=== PATIENT | male | born 1980 | race Caucasian/White ===

== ENCOUNTER 2020-01-09 08:28 | Emergency (ER) | payer OTHER ==
[2020-01-09] MEDS ORDERED: IBUPROFEN 600 MG TAB PO STA (08:54)
[2020-01-09] MEDS ORDERED: ACETAMINOPHEN TAB 500 MG TAB PO STA (08:54)
--- NOTE | 2020-01-09 09:00 | ED ---
URI HPI - General Chief Complaint: Upper Respiratory Infection Stated Complaint: Fever, Cough Time Seen by Provider: 01/09/20 08:49 Source: patient, RN notes reviewed Mode of arrival: ambulatory Limitations: no limitations - History of Present Illness Initial Comments: This a 39-year-old male presents emergency department tingling of fever cough congestion. Patient states symptoms started Thursday. He starts [id number] cough and cold medications with no relief. Patient denies any chest pain. Patient states she does have productive cough states is very achiness muscle joints. She does complain of a headache no recent Tylenol Motrin for his fever he did take some NyQuil last night. Patient's had a runny nose, sore throat. Patient denies any significant past history no sick contacts no recent traveling. - Related Data Home Medications Medication Instructions Recorded Confirmed D-Methorphan/PE/Acetaminophen 2 cap PO Q4H PRN 01/09/20 01/09/20 [Vicks Dayquil Liquicaps] guaiFENesin SYRUP 100MG/5ML 200 mg PO Q6H PRN 01/09/20 01/09/20 [Robitussin] Previous Rx's Medication Instructions Recorded Azithromycin [Zithromax Z-pack] 0 mg PO DIRECTED #1 pack 01/09/20 Allergies Allergy/AdvReac Type Severity Reaction Status Date / Time No Known Allergies Allergy Verified 01/09/20 09:06 Review of Systems ROS Statement: Those systems with pertinent positive or pertinent negative responses have been documented in the HPI. ROS Other: All systems not noted in ROS Statement are negative. Past Medical History Past Medical History: No Reported History History of Any Multi-Drug Resistant Organisms: None Reported Past Surgical History: No Surgical Hx Reported Past Psychological History: No Psychological Hx Reported Smoking Status: Never smoker Past Alcohol Use History: Occasional Past Drug Use History: None Reported General Exam Limitations: no limitations General appearance: alert, in no apparent distress Head exam: Present: atraumatic, normocephalic, normal inspection Eye exam: Present: normal appearance, PERRL, EOMI. Absent: scleral icterus, conjunctival injection, periorbital swelling ENT exam: Present: normal exam, normal oropharynx, mucous membranes moist, TM's normal bilaterally Neck exam: Present: normal inspection. Absent: tenderness, meningismus, lymphadenopathy Respiratory exam: Present: normal lung sounds bilaterally. Absent: respiratory distress, wheezes, rales, rhonchi, stridor Cardiovascular Exam: Present: normal rhythm, tachycardia, normal heart sounds. Absent: systolic murmur, diastolic murmur, rubs, gallop, clicks GI/Abdominal exam: Present: soft, normal bowel sounds. Absent: distended, tenderness, guarding, rebound, rigid Neurological exam: Present: alert, oriented X3, CN II-XII intact Skin exam: Present: warm, dry, intact, normal color. Absent: rash Course Vital Signs 01/09/20 01/09/20 08:31 08:40 Temperature 99.8 F H 102 F H Pulse Rate 102 H Respiratory 18 Rate Blood Pressure 130/86 O2 Sat by Pulse 97 Oximetry Medical Decision Making - Medical Decision Making Chest x-ray shows multifocal upper lobe pneumonia in the right. Patient was given Rocephin, be discharged on azithromycin. Patient advised that he self quarantined at this time. Patient really follow-up with. Patient is discharged with anorexia return parameters - Lab Data Lab Results 01/09/20 Range/Units 09:02 Influenza Type A RNA Not Detected (Not Detectd) Influenza Type B (PCR) Not Detected (Not Detectd) Disposition Clinical Impression: Pneumonia Disposition: HOME SELF-CARE Condition: Stable Instructions (If sedation given, give patient instructions): Pneumonia (ED) Additional Instructions: Please return to the Emergency Department if symptoms worsen or any other concerns. Prescriptions: Azithromycin [Zithromax Z-pack] 0 mg PO DIRECTED #1 pack Is patient prescribed a controlled substance at d/c from ED?: No Referrals: None,Stated [Primary Care Provider] - 1-2 days Time of Disposition: 09:51
--- NOTE | 2020-01-09 09:19 | XR ---
EXAMINATION TYPE: XR chest 2V DATE OF EXAM: 01/09/2020 COMPARISON: NONE HISTORY: Cough TECHNIQUE: Frontal and lateral views of the chest are obtained. FINDINGS: Multifocal right upper lobe patchy opacities are seen. Remainder the lungs are well aerate d. Cardiomediastinal silhouette is within normal limits. No acute osseous pathology. IMPRESSION: Multifocal right upper lobe opacities are most radiographically compatible with pneumoni a. Follow-up x-ray after treatment is recommended to ensure resolution.
[2020-01-09] MEDS ORDERED: cefTRIAXone 1,000 MG VIAL (IM USE) IM STA (09:49)
[2020-01-09 10:19] VITALS: BP 133/85; PULSE 89; RESP 20; TEMP 101.1
== END 2020-01-09 10:20 | disposition home or self-care (01) ==
LOC: EC 08:28
DX: J18.9 Pneumonia, unspecified organism (principal); R00.0 Tachycardia, unspecified
CPT/HCPCS: 87502; 71046; 96372; 99284; U0002; J0696